=== PATIENT | female | born 1960 | race Hispanic/Latino ===

== ENCOUNTER 2018-07-14 13:14 | Emergency (ER) | payer BC ==
[2018-07-14 13:17] VITALS: BMI 30.1
[2018-07-14 13:29] VITALS: RESP 19
--- NOTE | 2018-07-14 14:51 | ED PDOC ---
Arrival/HPI - General Chief Complaint: Chest Pain Time Seen by Provider: 07/14/18 13:43 Historian: Patient - History of Present Illness Narrative History of Present Illness (Text): 07/14/18 14:40 58 year old female, whose past medical history includes hypertension, GERD and cholelithiasis, who presents to the Emergency Department complaining of epigastric pain and tightness since last night. Patient states symptoms initially presented as epigastric discomfort which soon developed into midsternal chest pain. Patient reports she called her PMD, Dr. Neumann, who prompted her to visit the ER for evaluation. She reports chest pain has resolved, but epigastric pain persisted. Patient describes associated nausea but denies any vomiting, fever, chills, or any other complaints. She reports recent cardiac stress test done few weeks ago, which was negative. Patient additionally reports recent colonoscopy and endoscopy performed with no significant findings. PMD: Dr. Neumann Time/Duration: 24 hours Symptom Onset: Gradual Symptom Course: Unchanged Activities at Onset: Light Context: Home Past Medical History - Provider Review Nursing Documentation Reviewed: Yes - Infectious Disease Hx of Infectious Diseases: None - Reproductive Menopause: Yes - Cardiac Hx Cardiac Disorders: Yes Hx Hypertension: Yes - Neurological Hx Neurological Disorder: No - Hematological/Oncological Hx Blood Disorders: No - Musculoskeletal/Rheumatological Other/Comment: arthralgia - Psychiatric Hx Substance Use: No - Anesthesia Hx Anesthesia: No Family/Social History - Physician Review Nursing Documentation Reviewed: Yes Family/Social History: Unknown Family HX Smoking Status: Unknown If Ever Smoked Hx Alcohol Use: No Hx Substance Use: No Allergies/Home Meds Allergies/Adverse Reactions: Allergies No Known Allergies Allergy (Verified 07/14/18 13:17) Home Medications: Home Meds Medication Instructions Recorded Confirmed Dexlansoprazole [Dexilant] 60 mg PO DAILY 07/14/18 07/14/18 ERYthromycin BASE [ERYthromycin] 250 mg PO TID 07/14/18 07/14/18 Hydroxychloroquine Sulfate 200 mg PO BID 07/14/18 07/14/18 Review of Systems - Physician Review All systems were reviewed & negative as marked: Yes - Review of Systems Constitutional: absent: Fevers Respiratory: absent: SOB Cardiovascular: Chest Pain Gastrointestinal: Abdominal Pain. absent: Vomiting Genitourinary Female: absent: Dysuria, Urine Output Changes Musculoskeletal: absent: Back Pain, Neck Pain Neurological: absent: Headache, Dizziness Psychiatric: absent: Anxiety Physical Exam Vital Signs Reviewed: Yes Vital Signs Temp Pulse Resp BP Pulse Ox 07/14/18 13:14 97.9 F 78 19 120/63 97 Temperature: Afebrile Blood Pressure: Normal Pulse: Regular Respiratory Rate: Normal Appearance: Positive for: Well-Appearing, Non-Toxic, Comfortable Pain Distress: None Mental Status: Positive for: Alert and Oriented X 3 - Systems Exam Mouth: Present: Moist Mucous Membranes Respiratory/Chest: Present: Clear to Auscultation, Good Air Exchange. No: Respiratory Distress, Accessory Muscle Use Cardiovascular: Present: Regular Rate and Rhythm, Normal S1, S2. No: Murmurs Abdomen: Present: Tenderness (epigastric). No: Distention, Peritoneal Signs, Rebound, Guarding Upper Extremity: Present: Normal Inspection. No: Cyanosis, Edema Lower Extremity: Present: Normal Inspection. No: Edema Neurological: Present: GCS=15, Speech Normal Skin: Present: Warm, Dry, Normal Color. No: Rashes Psychiatric: Present: Alert, Oriented x 3, Normal Insight, Normal Concentration Medical Decision Making ED Course and Treatment: 07/14/18 14:52 Impression: 58 year old female presents to the Emergency Department complaining of epigastric pain and tightness since last night. Differential Diagnosis included but are not limited to: -- Chest pain r/o ACS -- Gastritis Plan: -- Basic labs -- IV Fluids -- UA -- CXR -- Elixir -- Maalox -- Pepcid -- Reglan -- US of Abdomen -- Reassess and disposition Prior Visits: Notes and results from previous visits were reviewed. Progress Notes: 07/14/18 15:52 - RAD Interpretation Radiology Orders: 07/14/18 14:06 CHEST PORTABLE [RAD] Stat - Scribe Statement The provider has reviewed the documentation as recorded by the Scribe Jordi Chaudhry, training with Irineo Phillips. All medical record entries made by the Scribe were at my direction and personally dictated by me. I have reviewed the chart and agree that the record accurately reflects my personal performance of the history, physical exam, medical decision making, and the department course for this patient. I have also personally directed, reviewed, and agree with the discharge instructions and disposition. Disposition/Present on Arrival - Present on Arrival Any Indicators Present on Arrival: No History of DVT/PE: No History of Uncontrolled Diabetes: No Urinary Catheter: No History of Decub. Ulcer: No History Surgical Site Infection Following: None - Disposition Have Diagnosis and Disposition been Completed?: Yes Diagnosis: Gastritis, Flatulence/gas pain/belching Disposition: HOME/ ROUTINE Disposition Time: 17:07 Patient Plan: Discharge Condition: IMPROVED Discharge Instructions (ExitCare): Gas and Bloating, Gastritis (DC) Print Language: [id number] Additional Instructions: All medical record entries made by the Scribe were at my direction and personally dictated by me. I have reviewed the chart and agree that the record accurately reflects my personal performance of the history, physical exam, medical decision making, and the department course for this patient. I have also personally directed, reviewed, and agree with the discharge instructions and disposition. Please follow up with your mutual fund accountant. Prescriptions: Aluminum Hydroxide/Magnesium H [Maalox 30 ml] 30 ml PO PRN PRN #1 udc PRN Reason: Flatulence Atropine/Hyoscyamine [ Elixir] 10 ml PO PRN PRN #30 ml PRN Reason: Flatulence Famotidine [Pepcid] 40 mg PO DAILY #10 tablet Referrals: Roger Neumann MD [Primary Care Provider] - Follow up with primary Kyara Mccullough MD [Medical Doctor] - [place] [facility] [place] - Follow up with primary Forms: [employer] (Sinhala), WORK NOTE
[2018-07-14 14:57] LABS: BASO # 0.02 K/mm3 (0.0-2.0); BASO % 0.4 % (0.0-3.0); EOS # 0.2 (0.0-0.7); EOS % 5.4 % (1.5-5.0); HEMOGLOBIN 13.8 g/dL (12.0-16.0); LYMPH # 1.8 (1.2-3.4); LYMPH % 39.4 % (22.0-35.0); MEAN CELL VOLUME 87.3 fl (80.0-105.0); MEAN CORPUSCULAR HEMOGLOBIN 29.7 pg (25.0-35.0); MEAN PLATELET VOLUME 10.5 fl (7.0-11.0); MONO # 0.3 (0.1-0.6); MONO % 6.7 % (1.0-6.0); RBC 4.65 10^6/uL (3.5-6.1); WHITE BLOOD COUNT 4.5 10^3/uL (4.5-11.0)
[2018-07-14 15:11] LABS: INR 1.14; PARTIAL THROMBOPLASTIN TIME 36.1 Seconds (26.9-38.3); PROTHROMBIN TIME 12.6 SECONDS (9.4-12.5)
[2018-07-14 15:15] LABS: ALB/GLOB RATIO 1.2 (1.1-1.8); ALBUMIN 4.1 g/dL (3.0-4.8); ALT/SGPT 10 U/L (7-56); AST/SGOT 33 U/L (14-36); BLOOD UREA NITROGEN 12 mg/dL (7-21); CALCIUM 9.1 mg/dL (8.4-10.5); GFR NON-AFRICAN AMERICAN > 60; LIPASE 52 U/L (23-300)
--- NOTE | 2018-07-14 15:16 | RAD ---
Date of service: 07/14/2018 HISTORY: chest pain COMPARISON: No prior. FINDINGS: LUNGS: The lungs are well inflated and clear. PLEURA: No pleural effusions or pneumothorax. CARDIOVASCULAR: The heart is normal in size. No aortic atherosclerotic calcifications present. OSSEOUS STRUCTURES: Within normal limits for the patient's age. VISUALIZED UPPER ABDOMEN: Normal. OTHER FINDINGS: None. IMPRESSION: No active pulmonary disease.
[2018-07-14 15:27] LABS: B-TYPE NATRIURETIC PEPTIDE 53.1 pg/mL (0-450); TROPONIN I < 0.01 ng/mL
[2018-07-14] MEDS ORDERED: Alum-Mag Hydrox-Simethicone Susp (30 mL) PO STA (15:30)
[2018-07-14] MEDS ORDERED: Atrop/Hyosc/Scopal/PB Elixir (120 ml) PO STA (15:30)
[2018-07-14] MEDS ORDERED: Sodium Chloride 0.9% 1,000 ML IV STA (15:30)
[2018-07-14 15:35] VITALS: PULSE 65
--- NOTE | 2018-07-14 16:34 | US ---
Date of service: 07/14/2018 HISTORY: Abdominal pain COMPARISON: None. TECHNIQUE: Grayscale imaging was performed. FINDINGS: LIVER: Measures 13.2 cm. Normal echogenicity of the liver parenchyma. There is a 4.2 x 5.2 x 5.3 cm septated cyst in the right hepatic lobe.. No intrahepatic bile duct dilatation. GALLBLADDER: There are multiple gallstones. No wall thickening, pericholecystic fluid or positive sonographic Olsen's sign. COMMON BILE DUCT: Measures 3.2 mm. No stones. No dilatation. PANCREAS: Unremarkable as visualized. No mass. No ductal dilatation. RIGHT KIDNEY: Measures 10.7cm. Normal echogenicity. No calculus, mass, or hydronephrosis. LEFT KIDNEY: Measures 10.5cm. Normal echogenicity. No calculus, mass, or hydronephrosis. SPLEEN: Normal in size and contour. No mass. AORTA: No aneurysmal dilatation. IVC: Unremarkable. OTHER FINDINGS: None. IMPRESSION: 1. Cholelithiasis. 2. 4.2 x 5.2 x 5.3 cm septated cyst in the right hepatic lobe.
[2018-07-14 17:28] VITALS: BP 99/57; TEMP 98.4; O2SAT 97
--- NOTE | 2018-07-15 07:08 | CARD ---
APPROVED REPORT Date of service: 07/14/2018 EKG Measurement Heart [id number] <Conclusion> Normal sinus rhythm Low voltage QRS Cannot rule out Anterior infarct, age undetermined Abnormal ECG
== END 2018-07-14 17:29 | disposition home or self-care (01) ==
LOC: ED 13:14 → EDBD 13:14 → ED 17:29
DX: K29.70 Gastritis, unspecified, without bleeding (principal); R14.3 Flatulence; R14.2 Eructation; R14.1 Gas pain; I10 Essential (primary) hypertension
CPT/HCPCS: 71045; 76700; 80053; 83690; 83735; 83880; 84484; 85025; 85378; 85610; 85730; 93005; 96361; 96374; 96375; 99284; J2765; J7030